=== PATIENT | female | born 1970 | race Caucasian/White ===

== ENCOUNTER 2025-01-04 07:36 | Day surgery (SDC) | payer OTHER ==
[2024-12-21 16:07] VITALS: BMI 28.3
[2025-01-04 11:22] VITALS: TEMP 97.6
[2025-01-04 11:56] VITALS: BP 115/72; PULSE 71; RESP 15
== END 2025-01-04 12:00 | disposition home or self-care (01) ==
LOC: JASU-ENDO 07:36
PROVIDERS: ATTEND Internal Medicine Gastroenterology
PROC: 0DJD8ZZ Inspection of Lower Intestinal Tract, Via Natural or Artificial Opening Endoscopic (ICD-10-PCS; principal; 2025-01-04 10:30)
DX: Z12.11 Encounter for screening for malignant neoplasm of colon (principal); K64.8 Other hemorrhoids; Z86.0100 Personal history of colon polyps, unspecified